=== PATIENT | female | born 1975 | race Caucasian/White ===

== ENCOUNTER 2022-03-06 09:47 | Emergency (ER) | payer OTHER ==
--- NOTE | 2022-03-06 10:08 | ERPHSYRPT ---
- History of Present Illness Time Seen by Provider: 03/06/22 10:00 Historian: patient, family Exam Limitations: no limitations Patient Subjective Stated Complaint: Pt c/o of medial chest pain off and on for the past 5 weeks Triage Nursing Assessment: Pt brought to the ER by her , hypertensive, denies pain at this time but was having pain when she first got to this ER, states that it is a burning feeling in her medial epigastric region, pain comes at no regular time or reasoning, pulses normal, skin n/w/d, pt states that she has had swelling in her feet off and on for the past couple of weeks but does not have it at this time, denies N&V, doesn't appear to be in any distress Physician History: This is a 47-year-old overweight white female patient who has a history of diabetes, hypertension and elevated cholesterol who presents with intermittent substernal central nonradiating chest burning for the last 5 weeks. Patient states there is no particular activity or foods that bring the symptoms on. Patient denies shortness of breath. She denies nausea vomiting or diarrhea. The patient moved here from [place] recently and does not have a local physician. She states she does not have the chest pain at this time. It was present this morning. Timing/Duration: week(s) (5), intermittent Activities at Onset: none Quality: burning Location: substernal, central Chest Pain Radiation: no radiation Severity of Pain-Max: mild Modifying Factors: Improves With: nothing Associated Symptoms: denies symptoms Prior Chest Pain/Cardiac Workup: no prior chest pain Nitro Today/Relief: no nitro taken today Aspirin Treatment Today: 81 mg x 4, provided by ED Allergies/Adverse Reactions: No Known Drug Allergies Allergy (Verified 03/06/22 10:05) Home Medications: Atorvastatin Calcium 10 mg PO DAILY 03/06/22 [History] Dulaglutide [Trulicity] 0.75 mg SQ WEEKLY 03/06/22 [History] Lisinopril 10 mg [Zestril 10 MG] 10 mg PO DAILY 03/06/22 [History] Metformin HCl 850 mg [Glucophage 850 MG] 850 mg PO BID 03/06/22 [History] Travel Risk - International Travel Have you traveled outside of the country in past 3 weeks: No - Coronavirus Screening Are you exhibiting any of the following symptoms?: No - Vaccine Status Have you recieved a Covid-19 vaccination: No - Review of Systems Constitutional: No Symptoms Eyes: No Symptoms Ears, Nose, & Throat: No Symptoms Respiratory: No Symptoms Cardiac: Chest Pain (None at arrival. Described as nonradiating, substernal, central burning) Abdominal/Gastrointestinal: No Symptoms Genitourinary Symptoms: No Symptoms Musculoskeletal: No Symptoms Skin: No Symptoms Neurological: No Symptoms Psychological: No Symptoms Endocrine: No Symptoms Hematologic/Lymphatic: No Symptoms Immunological/Allergic: No Symptoms All Other Systems: Reviewed and Negative - Past Medical History Pertinent Past Medical History: Yes Cardiac History: High Cholesterol, Hypertension Endocrine Medical History: Diabetes Type II Psycho-Social History: Anxiety, Depression - Past Surgical History Past Surgical History: Yes Female Surgical History: Section - Social History Smoking Status: Never smoker Exposure to second hand smoke: Yes Drug Use: none Patient Lives Alone: No - Female History Hx Last Menstrual Period: 02/15/2022 Hx Now: No - Nursing Vital Signs Nursing Vital Signs: Initial Vital Signs Temperature 98.1 F 03/06/22 09:55 Pulse Rate 85 03/06/22 09:55 Blood Pressure 150/103 03/06/22 09:55 O2 Sat by Pulse Oximetry 100 03/06/22 09:55 Pain Scale Pain Intensity 0 - Physical Exam General Appearance: no apparent distress, alert, anxiety, obese Eye Exam: PERRL/EOMI, eyes nml inspection Ears, Nose, Throat Exam: normal ENT inspection, moist mucous membranes Neck Exam: normal inspection, non-tender, supple, full range of motion Respiratory Exam: normal breath sounds, lungs clear, airway intact, No chest tenderness, No respiratory distress Cardiovascular Exam: regular rate/rhythm, normal heart sounds, normal peripheral pulses Gastrointestinal/Abdomen Exam: soft, normal bowel sounds, No tenderness Pelvic Exam: not done Rectal Exam: not done Back Exam: normal inspection, normal range of motion, No CVA tenderness, No vertebral tenderness Extremity Exam: normal inspection, normal range of motion, pelvis stable Neurologic Exam: alert, oriented x 3, cooperative, phlebotomy manager II-XII nml as tested, normal mood/affect, nml cerebellar function, nml station & gait, sensation nml Skin Exam: normal color, warm, dry Lymphatic Exam: No adenopathy SpO2 Interpretation: normal SpO2: 100 O2 Delivery: Room Air - Course Nursing assessment & vital signs reviewed: Yes EKG Interpreted by Me: RATE (82), Sinus Rhythm, NORMAL AXIS, NORMAL INTERVALS, NORMAL QRS, NORMAL ST-T, Other (No acute ischemic changes on today's EKG. No comparison EKG available) Ordered Tests: Active Orders 24 hr Category Date Time Status EKG-ER Only STAT Care 03/06/22 10:28 Active IV Insertion STAT Care 03/06/22 10:28 Active Pulse Oximetry (ED) STAT Care 03/06/22 10:28 Active CHEST 1 VIEW (PORTABLE) Stat Exams 03/06/22 10:28 Completed CBC W DIFF Stat Lab 03/06/22 10:00 Completed CMP Stat Lab 03/06/22 10:00 Completed D-DIMER QUANTITATIVE Stat Lab 03/06/22 10:00 Completed TROPONIN Q3H Lab 03/06/22 10:00 Completed TROPONIN Q3H Lab 03/06/22 13:30 Ordered TROPONIN Q3H Lab 03/06/22 16:30 Ordered TROPONIN Q3H Lab 03/06/22 19:30 Ordered TROPONIN Q3H Lab 03/06/22 22:30 Ordered Medication Summary Discontinued Medications Generic Name Dose Route Start Last Admin Trade Name Freq PRN Reason Stop Dose Admin Al Hydrox/Mg Hydrox/Simethicone Confirm 03/06/22 10:40 Mag Hydrox/Al Hydrox/Simeth 30 Ml Udcup Administered 03/06/22 10:41 Dose 30 ml .ROUTE .STK-MED ONE Aspirin 324 mg 03/06/22 10:28 03/06/22 10:41 Aspirin 81 Mg Tab.Chew PO 03/06/22 10:29 324 mg STAT ONE Administration Aspirin Confirm 03/06/22 10:39 Aspirin 81 Mg Tab.Chew Administered 03/06/22 10:40 Dose 324 mg .ROUTE .STK-MED ONE Lidocaine HCl Confirm 03/06/22 10:44 Lidocaine Hcl Viscous 1 Ml Administered 03/06/22 10:45 Dose 15 ml .ROUTE .STK-MED ONE Magnesium Hydroxide 45 ml 03/06/22 10:29 03/06/22 10:46 Mag Hydrx/Alum Hyd/Simeth/Lido 45 Ml Bottle PO 03/06/22 10:30 45 ml STAT ONE Administration Lab/Rad Data: Laboratory Result Diagrams 03/06/22 10:00 03/06/22 10:00 Laboratory Results 03/06/22 03/06/22 03/06/22 Range/Units 10:00 10:00 10:00 WBC (4.0-10.5) K/mm3 RBC (4.1-5.4) M/mm3 Hgb (12.0-16.0) gm/dl Hct (35-47) % MCV (78-100) fl MCH (26-32) pg MCHC (32-36) g/dl RDW (11.5-14.0) % Plt Count (150-450) K/mm3 MPV (7.5-11.0) fl Gran % (36.0-66.0) % Eos # (Auto) (0-0.5) Absolute Lymphs (auto) (1.0-4.6) Absolute Monos (auto) (0.0-1.3) Lymphocytes % (24.0-44.0) % Monocytes % (0.0-12.0) % Eosinophils % (0.00-5.0) % Basophils % (0.0-0.4) % Absolute Granulocytes (1.4-6.9) Basophils # (0-0.4) D-Dimer 330 (215-500) ng/mL Sodium 133 L (137-145) mmol/L Potassium 4.7 (3.5-5.1) mmol/L Chloride 103 (98-107) mmol/L Carbon Dioxide 18 L (22-30) mmol/L Anion Gap 16.8 H (5-15) MEQ/L BUN 14 (7-17) mg/dL Creatinine 0.57 (0.52-1.04) mg/dL Estimated GFR > 60.0 ML/MIN Glucose 330 H (74-106) mg/dL Calcium 9.0 (8.4-10.2) mg/dL Total Bilirubin 0.70 (0.2-1.3) mg/dL AST 16 (14-36) U/L ALT 12 (0-35) U/L Alkaline Phosphatase 65 (38-126) U/L Troponin I 0.014 (0.000-0.034) ng/mL Serum Total Protein 7.5 (6.3-8.2) g/dL Albumin 4.1 (3.5-5.0) g/dL 03/06/22 Range/Units 10:00 WBC 9.0 (4.0-10.5) K/mm3 RBC 4.99 (4.1-5.4) M/mm3 Hgb 14.9 (12.0-16.0) gm/dl Hct 43.5 (35-47) % MCV 87.2 (78-100) fl MCH 29.9 (26-32) pg MCHC 34.3 (32-36) g/dl RDW 13.0 (11.5-14.0) % Plt Count 303 (150-450) K/mm3 MPV 10.2 (7.5-11.0) fl Gran % 73.7 H (36.0-66.0) % Eos # (Auto) 0.16 (0-0.5) Absolute Lymphs (auto) 1.63 (1.0-4.6) Absolute Monos (auto) 0.50 (0.0-1.3) Lymphocytes % 18.2 L (24.0-44.0) % Monocytes % 5.6 (0.0-12.0) % Eosinophils % 1.8 (0.00-5.0) % Basophils % 0.7 (0.0-0.4) % Absolute Granulocytes 6.62 (1.4-6.9) Basophils # 0.06 (0-0.4) D-Dimer (215-500) ng/mL Sodium (137-145) mmol/L Potassium (3.5-5.1) mmol/L Chloride (98-107) mmol/L Carbon Dioxide (22-30) mmol/L Anion Gap (5-15) MEQ/L BUN (7-17) mg/dL Creatinine (0.52-1.04) mg/dL Estimated GFR ML/MIN Glucose (74-106) mg/dL Calcium (8.4-10.2) mg/dL Total Bilirubin (0.2-1.3) mg/dL AST (14-36) U/L ALT (0-35) U/L Alkaline Phosphatase (38-126) U/L Troponin I (0.000-0.034) ng/mL Serum Total Protein (6.3-8.2) g/dL Albumin (3.5-5.0) g/dL - Progress Progress: improved, re-examined Air Movement: good Progress Note: 03/06/22 10:56 X-ray shows no acute cardiopulmonary process. Blood Culture(s) Obtained: No Antibiotics given: No Counseled pt/family regarding: lab results, diagnosis, need for follow-up, rad results - Departure Departure Disposition: Home Clinical Impression: Non-cardiac chest pain, Hyperglycemia, Gastritis Condition: Stable Critical Care Time: No Referrals: DOCTOR,NO FAMILY [Primary Care Provider] - Follow up/PCP as directed Additional Instructions: Monitor your blood sugar closely and treated according to your outpatient instructions. Follow-up with an outpatient provider for further evaluation and management of your gallbladder and any further chest pain or blood sugar issues. Avoid fatty greasy spicy foods. Prescriptions: Famotidine 20 mg [Pepcid 20 MG] 20 mg PO DAILY #10 tablet
[2022-03-06] MEDS ORDERED: BABY ASPIRIN 81 MG CHEW PO ONE (10:28)
[2022-03-06] MEDS ORDERED: GI COCKTAIL 45 ML (Maalox/Lidocaine) PO ONE (10:29)
[2022-03-06] MEDS ORDERED: BABY ASPIRIN 81 MG CHEW ONE (10:39)
[2022-03-06] MEDS ORDERED: MAALOX ES 30 ML UNIT DOSE ONE (10:40)
[2022-03-06] MEDS ORDERED: XYLOCAINE HCl Viscous ONE (10:44)
[2022-03-06 10:48] LABS: Absolute Neutrophil Ct (ANC) 6.62 (1.4-6.9); Basophil (Absolute #) 0.06 (0-0.4); Eosinophil % 1.8 % (0.00-5.0); Eosinophil (Absolute #) 0.16 (0-0.5); Hematocrit 43.5 % (35-47); Hemoglobin 14.9 gm/dl (12.0-16.0); Lymphocyte (Absolute #) 1.63 (1.0-4.6); Lymphocytes % 18.2 % (24.0-44.0); Mean Cell Volume 87.2 fl (78-100); Mean Corpuscular Hemoglobin 29.9 pg (26-32); Mean Corpuscular Hgb Concent. 34.3 g/dl (32-36); Mean Platelet Volume 10.2 fl (7.5-11.0); Monocytes % 5.6 % (0.0-12.0); Neutrophil % 73.7 % (36.0-66.0); Platelet Count 303 K/mm3 (150-450); Red Blood Count 4.99 M/mm3 (4.1-5.4)
[2022-03-06 10:53] LABS: ALBUMIN 4.1 g/dL (3.5-5.0); ALKALINE PHOSPHATASE 65 U/L (38-126); ANION GAP 16.8 MEQ/L (5-15); BLOOD UREA NITROGEN 14 mg/dL (7-17); CHLORIDE 103 mmol/L (98-107); Carbon Dioxide 18 mmol/L (22-30); Creatinine 1 0.57 mg/dL (0.52-1.04); EST GLOMERULAR FILTRATION RATE > 60.0 ML/MIN; Glucose 330 mg/dL (74-106); Potassium 4.7 mmol/L (3.5-5.1); SGOT/AST 16 U/L (14-36); SGPT/ALT 12 U/L (0-35); SODIUM 133 mmol/L (137-145); Total Protein 7.5 g/dL (6.3-8.2)
--- NOTE | 2022-03-06 10:54 | XRAY ---
Indication: Chest pain 5 weeks. Comparison: None Portable chest demonstrates normal heart, lungs, and bony thorax.
[2022-03-06 12:17] VITALS: BP 121/89; PULSE 89; O2SAT 98
== END 2022-03-06 12:45 | disposition home or self-care (01) ==
LOC: ED 09:47
DX: R07.89 Other chest pain (principal); K29.70 Gastritis, unspecified, without bleeding; E11.65 Type 2 diabetes mellitus with hyperglycemia; I10 Essential (primary) hypertension; E78.5 Hyperlipidemia, unspecified; Z79.84 Long term (current) use of oral hypoglycemic drugs; Z79.899 Other long term (current) drug therapy
CPT/HCPCS: 36000; 36415; 71045; 80053; 84484; 85025; 85379; 93005; 94760; 99284; A9270-GY

== ENCOUNTER 2024-08-23 05:31 | Day surgery (SDC) | payer OTHER ==
[2024-08-23] MEDS: Lactated Ringers 1,000 ML IV SCH (06:18)
[2024-08-23 06:25] LABS: HCG URINE TEST NEGATIVE (NEGATIVE)
[2024-08-23] MEDS ORDERED: Sodium Chloride 0.9% 1000 ML 1,000 ML ONE (06:30)
[2024-08-23] MEDS: Sodium Chloride 0.9% 1000 ML 1,000 ML IV SCH (06:46)
[2024-08-23] MEDS ORDERED: HUMULIN R ONE (06:50)
[2024-08-23] MEDS: HUMULIN R SQ ONE (06:52)
[2024-08-23 07:02] LABS: ANION GAP 14.7 MEQ/L (5-15); Calcium 8.7 mg/dL (8.4-10.2); Creatinine 1 0.73 mg/dL (0.52-1.04); EST GLOMERULAR FILTRATION RATE 100.1 ML/MIN; Potassium 3.8 mmol/L (3.5-5.1)
[2024-08-23] MEDS ORDERED: DIPRIVAN 200 MG/20 ML IV ONE ×2 (07:31→07:52)
[2024-08-23] MEDS ORDERED: Versed 2 MG/2 ML Injection ONE (07:31)
[2024-08-23 08:07] VITALS: TEMP 97.1
[2024-08-23 08:17] VITALS: RESP 16; O2SAT 97
[2024-08-23 08:20] VITALS: BP 109/82; PULSE 71
--- NOTE | 2024-08-24 07:45 | OP ---
SURGERY DATE/TIME: 08/23/2024 [id number] PREOPERATIVE DIAGNOSIS: Screening exam. POSTOPERATIVE DIAGNOSIS: Normal colon. PROCEDURE: Colonoscopy. SURGEON: Edilson Fleming MD ANESTHESIA: Medications were given by the anesthesia department. INDICATIONS: The patient is a 49-year-old white female presenting now for colonoscopy. She was appraised of the risks of the procedure including risk of perforation, phlebitis, untoward reaction to medication, bleeding, and missed lesions. The patient verbalized her understanding and desire to have procedure performed. DESCRIPTION OF PROCEDURE AND FINDINGS: The patient was given medication by the anesthesia department. She had continuous pulse oximetry, ECG monitoring, intermittent blood pressure monitoring, and end-tidal CO2 monitoring during the examination. She was placed in the left lateral decubitus position. Digital rectal examination was performed and revealed normal anal sphincter tone and no masses. The flexible Olympus videocolonoscope was used to intubate the rectum. A view of the colon was developed sequentially to the cecum. Upon insertion and withdrawal, including retroflexed view in the rectum, no mucosal lesions were encountered. The scope was removed. The patient tolerated the procedure well and was sent back to outpatient recovery in good condition. The prep was noted to be fair.
== END 2024-08-23 08:27 | disposition home or self-care (01) ==
LOC: SDC 05:31
PROVIDERS: ATTEND Family Medicine
DX: Z12.11 Encounter for screening for malignant neoplasm of colon (principal); E11.9 Type 2 diabetes mellitus without complications
CPT/HCPCS: 36415; 80048; 81025; 82947; J1815; J2250; J2704

== ENCOUNTER 2024-10-07 11:13 | Day surgery (SDC) | payer OTHER ==
[~2024-10-07 11:13] MED LIST: Sensorcaine 0.25% 10 ML ONE; Sodium Chloride 0.9% 1000 ML 1,000 ML ONE
[2024-10-07 11:57] LABS: HCG URINE TEST NEGATIVE (NEGATIVE)
[2024-10-07] MEDS ORDERED: Lactated Ringers 1,000 ML IV ONE (11:59)
[2024-10-07 12:10] VITALS: RESP 18
[2024-10-07] MEDS: MEFOXIN 2 GM PREMIX** 2 GM/50 ML ML IV SCH (12:10)
[2024-10-07] MEDS ORDERED: Pepcid 20 MG VIAL IV ONE (12:11)
[2024-10-07] MEDS ORDERED: Reglan 10 MG/2 ML ONE (12:11)
[2024-10-07] MEDS ORDERED: Transderm Scop 1.5MG Patch ONE (12:11)
[2024-10-07] MEDS: Pepcid 20 MG VIAL IV ONE (12:12)
[2024-10-07] MEDS: Reglan 10 MG/2 ML IV ONE (12:12)
[2024-10-07] MEDS: Transderm Scop 1.5MG Patch TOP PRN (12:12)
[2024-10-07] MEDS: Lactated Ringers 1,000 ML IV SCH (12:13)
[2024-10-07 12:14] LABS: Absolute Neutrophil Ct (ANC) 4.47 x10^3/uL (1.56-6.13); BASOPHIL % 1.4 % (0.1-1.2); Basophil (Absolute #) 0.09 x10^3/uL (0.01-0.08); Eosinophil % 2.5 % (0.7-5.8); Eosinophil (Absolute #) 0.16 x10^3/uL (0.04-0.36); Hematocrit 39.2 % (34.1-44.9); Hemoglobin 13.4 g/dL (11.2-15.7); IMMATURE GRAN # 0.02 x10^3u/L (0.001-0.031); IMMATURE GRAN % 0.3 % (0.001-0.429); Lymphocyte (Absolute #) 1.29 x10^3/uL (1.18-3.74); Lymphocytes % 19.8 % (19.3-51.7); Mean Cell Volume 86.7 fL (79.4-94.8); Mean Corpuscular Hemoglobin 29.6 pg (25.6-32.2); Mean Corpuscular Hgb Concent. 34.2 g/dL (32.2-35.5); Mean Platelet Volume 9.5 fL (9.4-12.3); Monocyte (Absolute #) 0.47 x10^3/uL (0.24-0.86); Monocytes % 7.2 % (4.7-12.5); Neutrophil % 68.8 % (34.0-71.1); Platelet Count 294 x10^3/uL (182-369); Red Blood Count 4.52 x10^6/uL (3.93-5.22); Red Cell Distribution Width 12.4 % (11.7-14.4); White Blood Count 6.5 x10^3/uL (3.98-10.04)
[2024-10-07 12:25] LABS: ALBUMIN 3.9 g/dL (3.5-5.0); ANION GAP 14.2 MEQ/L (5-15); BILIRUBIN,TOTAL 0.7 mg/dL (0.2-1.3); Calcium 8.6 mg/dL (8.4-10.2); Creatinine 1 0.71 mg/dL (0.52-1.04); EST GLOMERULAR FILTRATION RATE 103.5 ML/MIN; Potassium 4.3 mmol/L (3.5-5.1); Total Protein 7.4 g/dL (6.3-8.2)
[2024-10-07] MEDS ORDERED: DIPRIVAN 200 MG/20 ML IV ONE (13:34)
[2024-10-07] MEDS ORDERED: ROCURONIUM BROMIDE IV ONE (13:34)
[2024-10-07] MEDS ORDERED: Versed 2 MG/2 ML Injection ONE (13:34)
[2024-10-07] MEDS ORDERED: SUBLIMAZE 100 MCG/2 ML ONE ×3 (13:34→14:41)
[2024-10-07] MEDS ORDERED: HUMULIN R ONE (13:53)
[2024-10-07] MEDS ORDERED: BRIDION 200MG/2ML IV ONE (14:12)
[2024-10-07] MEDS ORDERED: Zofran 4 MG/2 ML VIAL ONE (14:12)
[2024-10-07] MEDS ORDERED: Hydromorphone 1 mg/ml Injection ONE (15:02)
[2024-10-07 16:02] VITALS: BP 147/84; PULSE 71; TEMP 96.7; O2SAT 95
--- NOTE | 2024-10-08 09:33 | OP ---
SURGERY DATE: 10/07/2024 [id number] PREOPERATIVE DIAGNOSIS: Cholecystitis. POSTOPERATIVE DIAGNOSIS: Cholecystitis. PROCEDURE PERFORMED: Laparoscopic cholecystectomy. SURGEON: Stephon Penn MD ANESTHESIA: General. ESTIMATED BLOOD LOSS: Minimal. PATIENT CONDITION: Stable. COMPLICATIONS: None. SPECIMENS: Gallbladder. HISTORY OF PRESENT ILLNESS: The patient is a 49-year-old female who previously had findings of gallstones on imaging, symptomatic, postprandial abdominal pain. Discussion had with patient, risk of infection, bleeding, injury to nearby structure, hernia, failure to resolve symptoms. She elected to proceed with surgery. FINDINGS: Critical view. DESCRIPTION OF PROCEDURE AND FINDINGS: The patient was brought to the operating room. General anesthesia induced. Routinely positioned, prepped, and draped. Time-out performed. Received preoperative antibiotic. The 5 mm Optiview trocar placed in the left upper quadrant. Pneumoperitoneum established. An 11 mm right paramedial trocar placed. Two additional 5 mm trocars placed in the right upper quadrant. The patient was positioned. Gallbladder dissected out. Cystic duct and cystic artery dissected out. Critical view was clearly obtained. Both were clipped with 5 mm metal clip school leader then, divided. Gallbladder was taken off the liver bed, placed in a specimen bag, removed through the 11 trocar site. Right upper extremity reinspected. The clips are in good position. There is good hemostasis. The 11 trocar closed with 0 Vicryl interrupted suture. Right upper quadrant ports removed under direct visualization. Left upper quadrant port used for desufflation, then removed. Marcaine had been injected at all the port sites. Skin was closed with 4-0 Vicryl suture. Steri-Strips and sterile dressings applied. All counts were correct. The patient tolerated the procedure well. Plan is for extubation.
== END 2024-10-07 16:05 | disposition home or self-care (01) ==
LOC: SDC 11:13
PROVIDERS: ATTEND Surgery
DX: K81.9 Cholecystitis, unspecified (principal); E11.9 Type 2 diabetes mellitus without complications
CPT/HCPCS: 36415; 80053; 81025; 82947; 85025; 93005; J0694; J1171; J1815; J2250; J2405; J2704; J3010; A9270-GY